=== PATIENT | female | born 1970 | race Two or more races ===

== ENCOUNTER 2022-08-05 17:36 | Emergency (ER) | payer OTHER ==
[~2022-08-05] VITALS: Ht 157.5 cm; Wt 71.2 kg
[2022-08-05] MEDS ORDERED: KETO10TA2 PO (17:45)
[2022-08-05] MEDS ORDERED: FOLIC ACID20 MG (17:45)
[2022-08-05] MEDS ORDERED: VOLTAREN ARTHRI20 GM (17:46)
[2022-08-05] MEDS ORDERED: METHOTREXATE2.5 MG PO (17:48)
== END 2022-08-05 18:46 | disposition home or self-care (01) ==
LOC: ER 17:36
DX: L03.818 Cellulitis of other sites (principal)

== ENCOUNTER 2022-10-03 13:28 | Emergency (ER) | payer OTHER ==
[~2022-10-03] VITALS: Ht 157.5 cm; Wt 70.8 kg
[~2022-10-03 13:28] MED LIST: FOLIC ACID20 MG; KETO10TA2 PO; METHOTREXATE2.5 MG PO; VOLTAREN ARTHRI20 GM
== END 2022-10-03 15:22 | disposition home or self-care (01) ==
LOC: ER 13:28
DX: L03.317 Cellulitis of buttock (principal); L03.312 Cellulitis of back [any part except buttock and flank]